=== PATIENT | female | born 1985 | race Caucasian/White ===

== ENCOUNTER → 2017-06-21 | Outpatient (CLI) | payer OTHER | LOC: BICRAD 15:23 | PROVIDERS: ATTEND Physician Assistant | DX: J45.901 Unspecified asthma with (acute) exacerbation (principal) | CPT/HCPCS: 71046 ==

== ENCOUNTER 2017-07-04 23:57 | Emergency (ER) | payer BC, OTHER, SELFPAY ==
[2017-07-05 01:07] LABS: #Basophils 0.1 thou/uL (0.0-0.2); #Eosinphils 0.1 thou/uL (0.0-0.7); #Monocytes 0.5 thou/uL (0.11-0.59); #Neutrophils 4.3 thou/uL (1.40-6.50); %Eosinophils 1.6 % (0.0-10.0); %Lymphocytes 37.8 % (21.0-51.0); %Monocytes 5.8 % (0.0-10.0); %Neutrophils 53.8 % (42.0-75.0); Hemoglobin 14.2 g/dL (12.0-16.0); Mean Corpuscular HGB CONC 33.1 g/dL (32.0-36.0); Mean Corpuscular Volume 96.7 fl (81.0-99.0); Mean Platelet Volume 7.2 fL (7.4-10.4); Platelet Count 226 thou/uL (130-400); RBC Distribution Width 11.7 % (11.5-14.5); Red Blood Cell (RBC) Count 4.43 mill/uL (4.20-5.40); White Blood Cell (WBC) Count 7.9 thou/uL (4.8-10.8)
[2017-07-05 01:34] LABS: ALT (SGPT) 15 U/L (8-55); AST (SGOT) 10 U/L (5-34); Albumin 4.1 g/dL (3.5-5.0); Alkaline Phosphatase 88 U/L (40-150); Anion Gap 13 mmol/L (10-20); BUN (Urea Nitrogen) 7 mg/dL (7.0-18.7); Bilirubin, Total 0.4 mg/dL (0.2-1.2); Calc. Creatinine Clearance 0 mL/min (70-130); Calcium 9.1 mg/dL (7.8-10.44); Carbon Dioxide 26 mmol/L (22-29); Chloride 103 mmol/L (98-107); Estimated GFR-MDRD 88; Globulin 2.7 g/dL (2.4-3.5); Glucose 86 mg/dL (70-105); Potassium 3.8 mmol/L (3.5-5.1); Protein, Total 6.8 g/dL (6.0-8.3); Sodium 138 mmol/L (136-145)
[2017-07-05] MEDS ORDERED: Ondansetron HCl/PF 4 MG/2 ML Vial ONE (02:15)
[2017-07-05 03:18] LABS: Bilirubin Small (Negative); Blood, Urine Negative (Negative); Clarity CLEAR (Clear); Glucose, Urine (Dipstick) Negative (Negative); Leukocyte Negative (Negative); Nitrite Negative (Negative); Pregnancy Test - Urine (BHCG) Negative (Negative); Pregu Control Background? CLEAR/WHITE (CLR/WHITE); Pregu Control Bar Appear? YES (CONTROL BAR); Protein, Urine (Dipstick) Negative (Neg-Trace); Specific Gravity, Urine 1.024 (1.002-1.036)
[2017-07-05 03:19] LABS: Specific Gravity 1.024 (1.002-1.036)
--- NOTE | 2017-07-05 09:23 | ULT ---
PRELIMINARY REPORT/[facility]/EMERGENCY AFTER HOURS PROCEDURE: EXAM: US Abdomen Limited, Right Upper Quadrant EXAM DATE/TIME: 07/05/2017 2:38 AM CLINICAL HISTORY: Pain and signs and symptoms; Nausea and vomiting; Abdominal pain; Other: Ruq radiating to rt flank; Prior surgery; Surgery date: 6+ months; Surgery type: Gastric sleeve 10 yr s ago TECHNIQUE: Real-time ultrasound of the right upper quadrant with image documentation. COMPARISON: No relevant prior studies available. FINDINGS: Liver: The liver is mildly enlarged. No intrahepatic bile duct dilation. Gallbladder: Unremarkable. No gallstones, gallbladder wall thickening or pericholecystic fluid. electronic technologist noted a sonographic negative Chavez's sign. Common bile duct: Unremarkable as visualized. No stones. No dilation. Pancreas: The pancreas is poorly-visualized due to overlying bowel gas. Visualized portions of the he ad and body are unremarkable. Right kidney: 10 mm echogenic focus at the mid pole collecting system of the right kidney suggestive of a calculus. No hydronephrosis. IMPRESSION: 1. No sonographic evidence of cholelithiasis or acute cholecystitis. 2. Nonobstructive right renal calculus. ---We are pleased to participate in the care of your patient.--- Thank you for allowing us to participate in the care of your patient. Dictated and Authenticated by: Obdulia Marley MD 07/05/2017 3:20 AM Central Time ([place] & [place]) RIGHT UPPER QUADRANT ULTRASOUND: FINAL REPORT Date: 07-05-17 Comparison: None. History: Right upper quadrant pain, nausea and vomiting. FINDINGS: I agree with the preliminary [facility] report dictated by Dr. Marley. The imaged pancreas is grossly unremar kable. The tail is obscured by bowel gas. No discrete focal liver lesion or intrahepatic biliary dila tation is seen. No gallbladder wall thickening or pericholecystic fluid. No gallstones are noted. CBD measures 4 mm, within normal limits. Right kidney measures approximately 9.7 cm in craniocaudal dimension. There is a probable intrarenal calculus in the lower pole region measuring up to 5-6 mm. IMPRESSION: Probable nonobstructing right renal calculus. No evidence for cholelithiasis, cholecystitis or biliar y dilatation. Code QA POS: [facility]
== END 2017-07-05 04:08 | disposition home or self-care (01) ==
LOC: ERS 23:57
DX: K29.70 Gastritis, unspecified, without bleeding (principal); F41.9 Anxiety disorder, unspecified; F31.9 Bipolar disorder, unspecified; D69.6 Thrombocytopenia, unspecified; Z79.82 Long term (current) use of aspirin; Z79.899 Other long term (current) drug therapy; Z86.718 Personal history of other venous thrombosis and embolism
CPT/HCPCS: 36415; 76705; 80053; 81003; 81025; 83690; 85025; 96374; J2405

== ENCOUNTER 2017-08-23 12:55 | Outpatient (CLI) | payer OTHER ==
--- NOTE | 2017-08-23 13:17 | RAD ---
TWO VIEWS CHEST: Date: 08-23-17 Provided Clinical History: Dyspnea. FINDINGS: Comparison 06-05-09. Cardiac and mediastinal silhouette is within normal limits. Lungs appear clear. There is no pleural f luid or pneumothorax apparent. IMPRESSION: No evidence for an acute cardiopulmonary process. POS: [facility]
== END 2017-08-23 12:56 | disposition home or self-care (01) ==
LOC: RAD 12:55
PROVIDERS: ATTEND Internal Medicine Critical Care Medicine
DX: R06.00 Dyspnea, unspecified (principal)
CPT/HCPCS: 71046

== ENCOUNTER 2017-08-29 17:30 | Outpatient (CLI) | payer OTHER | END 2017-08-29 17:31 | disposition home or self-care (01) | LOC: SLEEPLAB 17:30 | PROVIDERS: ATTEND Internal Medicine | DX: G47.33 Obstructive sleep apnea (adult) (pediatric) (principal); E66.9 Obesity, unspecified | CPT/HCPCS: 95806 ==

== ENCOUNTER 2017-10-16 16:44 | Emergency (ER) | payer OTHER ==
[2017-10-16] MEDS ORDERED: Ondansetron ODT 8 MG TAB ONE (17:11)
[2017-10-16 17:33] LABS: #Eosinphils 0.1 thou/uL (0.0-0.7); #Lymphocytes 0.6 thou/uL (1.20-3.40); #Monocytes 0.4 thou/uL (0.11-0.59); #Neutrophils 9.5 thou/uL (1.40-6.50); %Basophils 0.4 % (0.0-1.0); %Eosinophils 1.2 % (0.0-10.0); %Lymphocytes 5.5 % (21.0-51.0); %Monocytes 3.9 % (0.0-10.0); Hemoglobin 14.9 g/dL (12.0-16.0); Mean Corpuscular Hemoglobin 32.1 pg (27.0-31.0); Mean Corpuscular Volume 94.4 fl (81.0-99.0); Mean Platelet Volume 6.9 fL (7.4-10.4); Platelet Count 226 thou/uL (130-400); RBC Distribution Width 11.2 % (11.5-14.5); Red Blood Cell (RBC) Count 4.65 mill/uL (4.20-5.40); White Blood Cell (WBC) Count 10.7 thou/uL (4.8-10.8)
[2017-10-16 17:40] LABS: BHCG - Serum Negative (NEGATIVE); Pregs Control Background? CLEAR/WHITE (CLR/WHITE); Pregs Control Bar Appear? YES (CONTROL BAR)
[2017-10-16 17:59] LABS: ALT (SGPT) 22 U/L (8-55); AST (SGOT) 21 U/L (5-34); Albumin 4.3 g/dL (3.5-5.0); Alkaline Phosphatase 95 U/L (40-150); Anion Gap 17 mmol/L (10-20); BUN (Urea Nitrogen) 7 mg/dL (7.0-18.7); Bilirubin, Total 0.5 mg/dL (0.2-1.2); CK (CPK) 44 U/L (29-168); Calc. Creatinine Clearance 0 mL/min (70-130); Calcium 9.5 mg/dL (7.8-10.44); Carbon Dioxide 20 mmol/L (22-29); Chloride 106 mmol/L (98-107); Estimated GFR-MDRD 89; Globulin 3.1 g/dL (2.4-3.5); Glucose 119 mg/dL (70-105); Lipase 9 U/L (8-78); Magnesium 1.9 mg/dL (1.6-2.6); Potassium 3.9 mmol/L (3.5-5.1); Protein, Total 7.4 g/dL (6.0-8.3); Sodium 139 mmol/L (136-145)
[2017-10-16] MEDS ORDERED: Ketorolac Tromethamine 30 MG/ML VIAL ONE (18:24)
[2017-10-16] MEDS ORDERED: Promethazine HCl 25 MG/ML VIAL ONE (18:24)
[2017-10-16 19:18] LABS: Bilirubin Small (Negative); Blood, Urine Negative (Negative); Clarity CLOUDY (Clear); Glucose, Urine (Dipstick) Negative (Negative); Leukocyte Negative (Negative); Nitrite Negative (Negative); Protein, Urine (Dipstick) Negative (Neg-Trace); Specific Gravity, Urine 1.026 (1.002-1.036); Urobilinogen 0.2 mg/dL (0.2-1.0)
--- NOTE | 2017-10-16 21:30 | ULT ---
RIGHT UPPER QUADRANT ULTRASOUND: History: Right flank pain, nausea, vomiting, and diarrhea. FINDINGS: The liver demonstrates increased echogenicity consistent with fatty infiltration. No focal mass or in trahepatic ductal dilatation is seen. No gallstones, gallbladder wall thickening or pericholecystic f luid is seen. The common duct measures 5 mm in diameter. The pancreas is not well visualized due to o verlying bowel gas. The right kidney is unremarkable without definite mass or hydronephrosis. IMPRESSION: 1. Fatty liver. 2. No evidence of cholelithiasis. POS: [facility]
== END 2017-10-16 20:09 | disposition home or self-care (01) ==
LOC: ERS 16:44
DX: K52.9 Noninfective gastroenteritis and colitis, unspecified (principal); Z86.718 Personal history of other venous thrombosis and embolism; E66.9 Obesity, unspecified; F41.9 Anxiety disorder, unspecified; F31.9 Bipolar disorder, unspecified; Z79.899 Other long term (current) drug therapy; Z79.82 Long term (current) use of aspirin
CPT/HCPCS: 76705; 80053; 81003; 82550; 83605; 83690; 83735; 84703; 85025; 87045; 87046; 87086; 87449; 87899; 96361; 96374; J1885; J2550

== ENCOUNTER 2017-12-15 07:23 | Outpatient (CLI) | payer OTHER | END 2017-12-15 07:24 | disposition home or self-care (01) | LOC: BICMRI 07:23 | PROVIDERS: ATTEND Family Medicine | DX: T14.8XXA Other injury of unspecified body region, initial encounter (principal); R22.31 Localized swelling, mass and lump, right upper limb; M25.531 Pain in right wrist; M85.88 Other specified disorders of bone density and structure, other site ==

== ENCOUNTER 2018-01-26 11:42 | Emergency (ER) | payer OTHER ==
[2018-01-26] MEDS ORDERED: Meclizine HCl 25 MG TAB ONE (12:28)
[2018-01-26 12:30] LABS: BHCG - Serum Negative (NEGATIVE); Pregs Control Background? CLEAR/WHITE (CLR/WHITE); Pregs Control Bar Appear? YES (CONTROL BAR)
[2018-01-26] MEDS ORDERED: Ondansetron HCl/PF 4 MG/2 ML Vial ONE (12:30)
[2018-01-26] MEDS ORDERED: Ondansetron ODT 4 MG TAB ONE (12:32)
[2018-01-26 12:39] LABS: ALT (SGPT) 14 U/L (8-55); AST (SGOT) 14 U/L (5-34); Albumin 3.8 g/dL (3.5-5.0); Alkaline Phosphatase 90 U/L (40-150); Anion Gap 11 mmol/L (10-20); BUN (Urea Nitrogen) 8 mg/dL (7.0-18.7); Bilirubin, Total 0.3 mg/dL (0.2-1.2); CK (CPK) 203 U/L (29-168); Calc. Creatinine Clearance 0 mL/min (70-130); Calcium 9.1 mg/dL (7.8-10.44); Carbon Dioxide 26 mmol/L (22-29); Chloride 107 mmol/L (98-107); Estimated GFR-MDRD 85; Globulin 2.6 g/dL (2.4-3.5); Glucose 126 mg/dL (70-105); Potassium 3.4 mmol/L (3.5-5.1); Protein, Total 6.4 g/dL (6.0-8.3); Sodium 141 mmol/L (136-145)
[2018-01-26 13:46] LABS: #Eosinphils 0.1 thou/uL (0.0-0.7); #Lymphocytes 1.5 thou/uL (1.20-3.40); #Monocytes 0.3 thou/uL (0.11-0.59); #Neutrophils 4.1 thou/uL (1.40-6.50); %Basophils 0.6 % (0.0-1.0); %Lymphocytes 24.9 % (21.0-51.0); %Monocytes 4.8 % (0.0-10.0); %Neutrophils 68.6 % (42.0-75.0); Hemoglobin 12.6 g/dL (12.0-16.0); Mean Corpuscular HGB CONC 34.3 g/dL (32.0-36.0); Mean Corpuscular Hemoglobin 31.9 pg (27.0-31.0); Mean Platelet Volume 7.4 fL (7.4-10.4); Platelet Count 213 thou/uL (130-400); RBC Distribution Width 11.4 % (11.5-14.5); Red Blood Cell (RBC) Count 3.95 mill/uL (4.20-5.40); White Blood Cell (WBC) Count 5.9 thou/uL (4.8-10.8)
== END 2018-01-26 15:05 | disposition home or self-care (01) ==
LOC: ERS 11:42
DX: R55 Syncope and collapse (principal); D69.6 Thrombocytopenia, unspecified; F31.9 Bipolar disorder, unspecified; F41.9 Anxiety disorder, unspecified; E66.9 Obesity, unspecified; Z79.899 Other long term (current) drug therapy
CPT/HCPCS: 36415; 80053; 82550; 84703; 85025; 93005; 96360; J2405; Q0162

== ENCOUNTER 2018-01-27 14:48 | Emergency (ER) | payer OTHER ==
[2018-01-27 16:25] LABS: CKMB 1.5 ng/mL (0-6.6); Troponin I Less than 0.010 ng/mL (< 0.028)
[2018-01-27 16:39] LABS: Bilirubin Negative (Negative); Blood, Urine Negative (Negative); Clarity CLEAR (Clear); Glucose, Urine (Dipstick) Negative (Negative); Leukocyte Small (Negative); Nitrite Negative (Negative); Protein, Urine (Dipstick) Negative (Neg-Trace)
[2018-01-27 16:49] LABS: Amphetamine Not Detected (NotDetected); Barbiturates Screen Not Detected (NotDetected); Benzodiazepine Screen Not Detected (NotDetected); Cocaine Metabolite Screen Not Detected (NotDetected); Medtox Control Line Valid? VALID (VALID); Medtox Reader # READER 1; Methadone Not Detected (NotDetected); Methamphetamine Not Detected (NotDetected); Opiate Screen Not Detected (NotDetected); Oxycodone Screen Not Detected (NotDetected); Phencyclidine (PCP) Not Detected (NotDetected); THC/Cannabinoid Screen Not Detected (NotDetected); Tricyclic Screen Not Detected (NotDetected)
[2018-01-27 16:52] LABS: Bacteria/HPF Rare-Few HPF (None Seen); Hyaline Casts/LPF 0-3 HYALINE CAST LPF (0-3 Hyaline); Pathc Cast-AUWi Flag 0.29 (0-2.49); RBC/HPF 0-3 HPF (0-3)
--- NOTE | 2018-01-27 17:04 | CT ---
CT HEAD WITHOUT CONTRAST: 01/27/18 COMPARISON: 11/30/05. HISTORY: Syncope. TECHNIQUE: Serial axial CT imaging at 5 mm intervals from vertex through skull base without contrast. FINDINGS: The imaged paranasal sinuses/mastoid air cells are well aerated. No displaced calvarial fracture. No intracranial hemorrhage, midline shift, or mass effect or ventricular enlargement. IMPRESSION: No acute findings. POS: [facility]
[2018-01-27] MEDS ORDERED: hydrOXYzine 25 MG TAB ONE ×2 (17:32)
[2018-01-27] MEDS ORDERED: Meclizine HCl 25 MG TAB ONE (17:37)
[2018-01-27] MEDS ORDERED: cefTRIAXone\\ROCEPHIN 1 GM VIAL ONE (18:03)
== END 2018-01-27 20:20 | disposition home or self-care (01) ==
LOC: ERS 14:48
DX: N39.0 Urinary tract infection, site not specified (principal); R56.9 Unspecified convulsions; E66.9 Obesity, unspecified; Z86.73 Personal history of transient ischemic attack (TIA), and cerebral infarction without residual deficits; Z79.899 Other long term (current) drug therapy
CPT/HCPCS: 36415; 36416; 70450; 80306; 81003; 81015; 82553; 84484; 85379; 93005; 96361; 96365; J0696

== ENCOUNTER 2018-02-02 15:50 | Inpatient (IN) | payer OTHER ==
[2018-02-02 16:52] LABS: #Eosinphils 0.1 thou/uL (0.0-0.7); #Lymphocytes 2.4 thou/uL (1.20-3.40); #Monocytes 0.4 thou/uL (0.11-0.59); #Neutrophils 4.5 thou/uL (1.40-6.50); %Basophils 0.1 % (0.0-1.0); %Eosinophils 1.3 % (0.0-10.0); %Lymphocytes 32.4 % (21.0-51.0); %Monocytes 5.6 % (0.0-10.0); %Neutrophils 60.5 % (42.0-75.0); Hemoglobin 13.7 g/dL (12.0-16.0); Mean Corpuscular Hemoglobin 32.1 pg (27.0-31.0); Mean Corpuscular Volume 91.9 fL (78.0-98.0); Mean Platelet Volume 7.1 fL (7.4-10.4); Platelet Count 257 thou/uL (130-400); RBC Distribution Width 11.4 % (11.5-14.5); Red Blood Cell (RBC) Count 4.25 mill/uL (4.20-5.40); White Blood Cell (WBC) Count 7.4 thou/uL (4.8-10.8)
[2018-02-02 16:55] LABS: BHCG - Serum Negative (NEGATIVE); Pregs Control Background? CLEAR/WHITE (CLR/WHITE); Pregs Control Bar Appear? YES (CONTROL BAR)
[2018-02-02 17:01] LABS: ALT (SGPT) 14 U/L (8-55); AST (SGOT) 14 U/L (5-34); Albumin 4.3 g/dL (3.5-5.0); Alkaline Phosphatase 101 U/L (40-150); Anion Gap 12 mmol/L (10-20); BUN (Urea Nitrogen) 9 mg/dL (7.0-18.7); Bilirubin, Total 0.3 mg/dL (0.2-1.2); CK (CPK) 50 U/L (29-168); Calc. Creatinine Clearance 0 mL/min (70-130); Carbon Dioxide 24 mmol/L (22-29); Chloride 105 mmol/L (98-107); Estimated GFR-MDRD Greater than 90; Globulin 2.5 g/dL (2.4-3.5); Glucose 91 mg/dL (70-105); Potassium 4.1 mmol/L (3.5-5.1); Protein, Total 6.8 g/dL (6.0-8.3); Sodium 137 mmol/L (136-145)
[2018-02-02 17:06] LABS: CKMB 0.7 ng/mL (0-6.6); Troponin I Less than 0.010 ng/mL (< 0.028)
[2018-02-02 17:07] LABS: Acetaminophen Less than 6.0 mcg/mL (10.0-30.0); Alcohol Less than 10 mg/dL (Less than 10); Salicylate Less than 8.0 mg/dL (15.0-30.0)
[2018-02-02] MEDS ORDERED: diphenhydrAMINE 50 MG/ML VIAL ONE (17:31)
[2018-02-02] MEDS ORDERED: Metoclopramide HCl 10 MG/2 ML VIAL ONE (17:32)
[2018-02-02 17:38] LABS: Bilirubin Negative (Negative); Blood, Urine Negative (Negative); Clarity CLEAR (Clear); Glucose, Urine (Dipstick) Negative (Negative); Leukocyte Negative (Negative); Nitrite Negative (Negative); Protein, Urine (Dipstick) Negative (Neg-Trace); Specific Gravity, Urine 1.007 (1.002-1.036); Urobilinogen 0.2 mg/dL (0.2-1.0)
[2018-02-02 17:53] LABS: Amphetamine Not Detected (NotDetected); Barbiturates Screen Not Detected (NotDetected); Benzodiazepine Screen Not Detected (NotDetected); Cocaine Metabolite Screen Not Detected (NotDetected); Medtox Control Line Valid? VALID (VALID); Medtox Reader # READER 4; Methadone Not Detected (NotDetected); Methamphetamine Not Detected (NotDetected); Opiate Screen Not Detected (NotDetected); Oxycodone Screen Not Detected (NotDetected); Phencyclidine (PCP) Not Detected (NotDetected); THC/Cannabinoid Screen Not Detected (NotDetected); Tricyclic Screen Not Detected (NotDetected)
--- NOTE | 2018-02-02 20:08 | PDOC.FPRHP ---
- History of Present Illness Chief Complaint: Syncopal-like episodes History of Present Illness: Ms. Porter presents with a one week history witnessed syncope with seizure like activity. She describes the episodes as starting out with a strange feeling in her head, then she does not remember anything until she wakes up on the floor. Witnesses describe the episodes as her staring into space with eye twitching, unresponsive to verbal commands, and occasionally falling to the ground. Afterwards she feels that she has been hit by a train. In 2015 she began having these episodes, which were worked up and resolved without a diagnoses. Until one week ago she has not had any witnessed episodes, but multiple falls and broken bones. From 7-5 days ago she had daily episodes witnessed by coworkers, who brought her to the ER. From 5 days ago until today she has not had any episodes but did have the feeling that she was going to have one today. five days ago she saw Dr. Wahl in the clinic and was diagnosed with complex migraines and given cyclobenzaprine. ED Course: CBC, CMP, UA, UDS. all neg. (head CT on 01/28, neg) - Allergies/Adverse Reactions Allergies Allergy/AdvReac Type Severity Reaction Status Date / Time shellfish derived Allergy Verified 02/02/18 22:13 Sulfa (Sulfonamide Allergy Verified 02/02/18 22:13 Antibiotics) - Home Medications Medication Instructions Recorded Confirmed Type Cholecalciferol (Vitamin D3) 10,000 units PO HS 02/02/18 02/02/18 History [Vitamin D3] DULoxetine [Cymbalta] 60 mg PO HS 02/02/18 02/02/18 History Folic Acid 0.4 mg PO HS 02/02/18 02/02/18 History Pantoprazole [Protonix] 40 mg PO HS 02/02/18 02/02/18 History clonazePAM [Clonazepam] 1 mg PO HS 02/02/18 02/02/18 History lamoTRIgine [Lamictal] 200 mg PO BID 02/02/18 02/02/18 History traZODone HCl [Trazodone HCl] 50 mg PO HS 02/02/18 02/02/18 History - History PMHx: PCOS, Bipolar II, DVT after gastric surgery PSHx: Gastric sleeve, tonsilectomy/adenoidectomy, mirena placed FHx:Dissociative identity disorder, CAD, BP Social: social ETOH - Review of Systems General: reports: other (cold intolerance) Eyes: reports: vision changes ENT: denies: nasal congestion, rhinorrhea Respiratory: denies: cough, congestion, shortness of breath Cardiovascular: denies: chest pain, palpitation, edema Gastrointestinal: reports: nausea. denies: vomiting, diarrhea, constipation Genitourinary: denies: incontinence, dysuria Skin: denies: rashes, lesions Musculoskeletal: denies: pain, tenderness Neurological: reports: syncope, seizure (witnessed siezure like activity). denies: numbness Psychological: reports: anxiety, depression - Vital signs BP: [127/89] HR: [115] RR: [20] Tmax: [97.8] Pox: [97]% on [RA] Wt: [136kg] - Physical Exam Constitutional: NAD HEENT: normocephalic and atraumatic, EOMI (horizontal nystagmus), conjunctiva clear, grossly normal vision, grossly normal hearing Neck: supple, trachea midline, no LAD Chest: no-tender to palpation, no lesions Heart: RRR, normal S1/S2, no murmurs/rubs/gallops Lungs: CTAB, no respiratory distress, good air movement Abdomen: soft, non-tender, bowel sounds present, no masses/distention Musculoskeletal: normal structure, normal tone Neurological: no focal deficit, CN II-XII intact Skin: no rash/lesions Heme/Lymphatic: no unusual bruising or bleeding Psychiatric: normal mood and affect, good judgment and insight, intact recent and remote memory FMR H&P: Results - Labs Result Diagrams: 02/02/18 16:30 02/02/18 16:30 Lab results: WBC 7.4 thou/uL (4.8-10.8) 02/02/18 16:30 Hgb 13.7 g/dL (12.0-16.0) 02/02/18 16:30 Hct 39.1 % (36.0-47.0) 02/02/18 16:30 MCV 91.9 fL (78.0-98.0) 02/02/18 16:30 Plt Count 257 thou/uL (130-400) 02/02/18 16:30 Neutrophils % 60.5 % (42.0-75.0) 02/02/18 16:30 Sodium 137 mmol/L (136-145) 02/02/18 16:30 Potassium 4.1 mmol/L (3.5-5.1) 02/02/18 16:30 Chloride 105 mmol/L (98-107) 02/02/18 16:30 Carbon Dioxide 24 mmol/L (22-29) 02/02/18 16:30 BUN 9 mg/dL (7.0-18.7) 02/02/18 16:30 Creatinine 0.73 mg/dL (0.6-1.1) 02/02/18 16:30 Glucose 91 mg/dL (70-105) 02/02/18 16:30 Calcium 9.0 mg/dL (7.8-10.44) 02/02/18 16:30 Total Bilirubin 0.3 mg/dL (0.2-1.2) 02/02/18 16:30 AST 14 U/L (5-34) 02/02/18 16:30 ALT 14 U/L (8-55) 02/02/18 16:30 Alkaline Phosphatase 101 U/L (40-150) 02/02/18 16:30 Creatine Kinase 50 U/L (29-168) 02/02/18 16:30 CK-MB (CK-2) 0.7 ng/mL (0-6.6) 02/02/18 16:30 Serum Total Protein 6.8 g/dL (6.0-8.3) 02/02/18 16:30 Albumin 4.3 g/dL (3.5-5.0) 02/02/18 16:30 Urine Ketones Negative mg/dL (Negative) 02/02/18 17:15 Urine Blood Negative (Negative) 02/02/18 17:15 Urine Nitrite Negative (Negative) 02/02/18 17:15 Ur Leukocyte Esterase Negative (Negative) 02/02/18 17:15 FMR H&P: A/P - Problem List (1) Seizure-like activity Current Visit: Yes Status: Acute Code(s): R56.9 - UNSPECIFIED CONVULSIONS (2) Bipolar 2 disorder Current Visit: Yes Status: Acute Code(s): F31.81 - BIPOLAR II DISORDER (3) Neck pain Current Visit: Yes Status: Acute Code(s): M54.2 - CERVICALGIA - Plan 1. Seizure-like activity - seizure vs. pseudo seizure vs complex migraine vs structural heart defect - EKG x2 without concern, order Echo - consult neurology, consider EEG - continue home meds for migraines 2. Neck pain - possible contributing factor - continue muscle relaxer 3. Bipolar type 2 - positive hx of psychiatric disorders - consider pseudo-seizure as addition 4. Obesity - s/p gastric sleeve - CMP wnl, consider other metabolic abnormalities - consistent carb diet Disposition/LOS: monitor on stroke, consult neurology in AM and await recs, possible outpatient work up FMR H&P: Upper Level - Pertinent history 32 yo female here for near syncopal episode. Hx of bipolar II, anxiety. Today she was feeling light headed and "heavy head" while at work, so she came to the hospital. No syncope. She had a similar episode 01/26/18 where she lost consciousness at work after feeling light headed. Witnessed by coworkers, endorsed shaking, but not sure what it looked like or how long it lasted. Endorses post-ictal aura of "feeling like I was run over by a bus." Brought to the ER with neg EKG. The next day she had similar feeling so she came to the ER where she had syncopal episode. CT head negative. UA showed UTI so she was given Bactrim. Recommended she see neurology, appt set up for early March. On 01/30 she was seen by Dr. Wahl at our clinic where she was given cyclobenzaprine for suspected complex seizures. - Pertinent findings Gen: NAD, AAO x 3 Eyes: EOMI, pupils equally dilated Card: RRR, possible bowel sounds in thorax Pulm: CTAB Abd: NBS x 4, NT,ND Ext: no cyanosis or edema Neuro: left eyelid twitch when turning head to the right with dolls eye exam; pt reported dizziness when testing extraoccular muscles; no nystagmus vertical or horizontal - Plan Date/Time: 02/02/182004 Saud Harris DO, have evaluated this patient and agree with findings/plan as outlined by international relations teacher resident. Pertinent changes/additions are listed here. 32 yo female here for syncopal episodes undetermined etiology. -migraine complex migraine is leading suspicion. DDx includes seizure, pseudoseizure, vasovagal, orthostatic, stroke, TIA. postictal state is indicative of seizure and patient had witnessed full body shaking. discuss with neurology in the morning. consider EEG -Bipolar II -GERD -Obesity Attending Addendum - Attending Addendum Date/Time: 02/03/18 0708 I personally evaluated the patient and discussed the management with Dr. Lui and Allie. I agree with and repeated History, Examination, Assessment and Plan documented above with any addition or exceptions noted below. Pt asymptomatic at this time. Exam unremarkable. Will consult neuro for eval of possible new seizures. Consider TTE in AM for syncope, although she tells me she had a normal workup in 2016 with cardiology, including a holter. Recent negative d-dimer, and low suspicion for PE at this time.
[2018-02-02] MEDS ORDERED: Ondansetron HCl/PF 4 MG/2 ML Vial IVP PRN (20:28)
[2018-02-02] MEDS ORDERED: Ondansetron ODT 4 MG TAB SL PRN (20:28)
[2018-02-02] MEDS ORDERED: Acetaminophen 325 MG TAB PO PRN (20:28)
[2018-02-02 21:01] VITALS: BMI 46.2
[2018-02-02] MEDS ORDERED: lamoTRIgine 100 MG TAB PO SCH (23:45)
[2018-02-02] MEDS ORDERED: DULoxetine 60 MG CAP PO SCH (23:45)
[2018-02-02] MEDS ORDERED: Enoxaparin Sodium 40 MG/0.4 ML SYRINGE SC SCH (23:59)
[2018-02-03 07:08] LABS: #Basophils 0.1 thou/uL (0.0-0.2); #Eosinphils 0.1 thou/uL (0.0-0.7); #Lymphocytes 2.2 thou/uL (1.20-3.40); #Monocytes 0.4 thou/uL (0.11-0.59); #Neutrophils 2.9 thou/uL (1.40-6.50); %Eosinophils 1.4 % (0.0-10.0); %Lymphocytes 39.5 % (21.0-51.0); %Monocytes 6.6 % (0.0-10.0); %Neutrophils 51.5 % (42.0-75.0); Hemoglobin 12.4 g/dL (12.0-16.0); Mean Corpuscular Volume 93.9 fL (78.0-98.0); Mean Platelet Volume 7.4 fL (7.4-10.4); Platelet Count 207 thou/uL (130-400); RBC Distribution Width 11.5 % (11.5-14.5); White Blood Cell (WBC) Count 5.6 thou/uL (4.8-10.8)
[2018-02-03 07:34] LABS: ALT (SGPT) 16 U/L (8-55); AST (SGOT) 12 U/L (5-34); Albumin 3.8 g/dL (3.5-5.0); Alkaline Phosphatase 86 U/L (40-150); Anion Gap 13 mmol/L (10-20); BUN (Urea Nitrogen) 7 mg/dL (7.0-18.7); Bilirubin, Total 0.5 mg/dL (0.2-1.2); Calc. Creatinine Clearance 267 mL/min (70-130); Calcium 9.2 mg/dL (7.8-10.44); Carbon Dioxide 25 mmol/L (22-29); Chloride 105 mmol/L (98-107); Estimated GFR-MDRD Greater than 90; Globulin 2.5 g/dL (2.4-3.5); Glucose 84 mg/dL (70-105); Potassium 3.4 mmol/L (3.5-5.1); Protein, Total 6.3 g/dL (6.0-8.3); Sodium 140 mmol/L (136-145)
--- NOTE | 2018-02-03 08:25 | PDOC.FM ---
- Subjective Subjective: Patient was not in room, at echo at time I went to see her. However, per nurse and mom patient had no seizure-like activity overnight. Reported possible twitching but unsure. No acute events otherwise. After returning patient is doing well. Had an episode of focal seizure with her right arm. Was given ativan with resolution of right arm shaking. - Objective MAR Reviewed: Yes Vital Signs & Weight: Vital Signs (12 hours) Temp Pulse Resp BP BP BP BP 02/03/18 07:52 97.8 F 74 16 133/63 02/03/18 04:39 80 109/65 02/03/18 04:38 68 104/56 L 02/03/18 04:37 68 93/55 L 02/03/18 03:55 97.4 F L 67 16 99/55 L 02/03/18 01:53 98.4 F 75 16 98/53 L 02/02/18 23:34 98.6 F 78 18 02/02/18 20:50 98.6 F 78 18 110/65 Pulse Ox 02/03/18 07:52 98 02/03/18 04:39 02/03/18 04:38 02/03/18 04:37 02/03/18 03:55 100 02/03/18 01:53 97 02/02/18 23:34 100 02/02/18 20:50 100 Weight Weight 146.057 kg I&O: 02/02/18 02/03/18 02/04/18 06:59 06:59 06:59 Intake Total 240 Balance 240 Result Diagrams: 02/03/18 05:19 02/03/18 05:19 <Lillian Acosta - Last Filed: 02/03/18 10:42> - Objective Vital Signs & Weight: Vital Signs (12 hours) Temp Pulse Resp BP BP BP BP 02/03/18 13:15 122/60 98/56 L 113/59 L 02/03/18 12:22 98.5 F 114 H 18 109/71 02/03/18 07:52 97.8 F 74 16 133/63 02/03/18 07:45 97.8 F 74 16 02/03/18 04:39 80 109/65 02/03/18 04:38 68 104/56 L 02/03/18 04:37 68 93/55 L 02/03/18 03:55 97.4 F L 67 16 99/55 L Pulse Ox 02/03/18 13:15 02/03/18 12:22 96 02/03/18 07:52 98 02/03/18 07:45 02/03/18 04:39 02/03/18 04:38 02/03/18 04:37 02/03/18 03:55 100 Weight Admit Weight 146.057 kg Weight 146.057 kg I&O: 02/02/18 02/03/18 02/04/18 06:59 06:59 06:59 Intake Total 240 Balance 240 Result Diagrams: 02/03/18 05:19 02/03/18 05:19 <Genia Correa - Last Filed: 02/03/18 15:45> Phys Exam - Physical Examination Unable to assess since pt. was not in room will reassess after she returns. HEENT: moist MMs, TM's clear Neck: full ROM Respiratory: clear to auscultation bilateral Cardiovascular: RRR, no significant murmur Gastrointestinal: soft, non-tender Musculoskeletal: no edema Neurological: moves all 4 limbs Psychiatric: normal affect, A&O x 3 Skin: no rash <Lillian Acosta - Last Filed: 02/03/18 10:42> Dx/Plan (1) Hypokalemia Code(s): E87.6 - HYPOKALEMIA Status: Acute (2) H/O deep venous thrombosis Code(s): Z86.718 - PERSONAL HISTORY OF OTHER VENOUS THROMBOSIS AND EMBOLISM Status: Acute (3) Bipolar 2 disorder Code(s): F31.81 - BIPOLAR II DISORDER Status: Acute (4) Neck pain Code(s): M54.2 - CERVICALGIA Status: Acute (5) Seizure-like activity Code(s): R56.9 - UNSPECIFIED CONVULSIONS Status: Acute - Plan Plan: 32 yo F with seizure like activity 1. Seizure like activity -hx most consistent with suspected seizures: aura, post ictal state, localized convulsions, loss of urine -consulted neuro, appreciate recs -echo -order EEG ddx: cardiogenic anatomical abnormality 2. hypokalemia -replaced K+ 3. BP2 -continue home meds 4. h/o DVT -lovenox ppx 5. PCOS -aware, no meds at this time dvt ppx: lovenox discussed with dr. correa <Lillian Acosta - Last Filed: 02/03/18 10:42> Attending Addendum - Attending Addendum Date/Time: 02/03/18 [id number] I personally evaluated the patient and discussed the management with Dr. Acosta. I agree with the History, Examination, Assessment and Plan documented above with any addition or exceptions noted below. The patient was admitted for seizure-like activity. This morning pt had shaking in her arm. Nursing witnessed the episode and noted pt was slow to respond. She was given ativan which ceased the activity. Neurology has been consulted. We will order EEG. Ativan prn for seizure. <Genia Correa - Last Filed: 02/03/18 15:45>
[2018-02-03] MEDS ORDERED: Potassium Chloride 20 MEQ TAB PO SCH (08:30)
[2018-02-03] MEDS ORDERED: Lorazepam 2 MG/ML VIAL ONE (09:09)
[2018-02-03] MEDS: lamoTRIgine 100 MG TAB PO SCH ×2 (10:05→20:51)
[2018-02-03] MEDS ORDERED: Ondansetron HCl/PF 4 MG/2 ML Vial IVP PRN (10:09)
[2018-02-03] MEDS ORDERED: Ondansetron HCl/PF 4 MG/2 ML Vial IVP SCH (10:15)
[2018-02-03] MEDS: Lorazepam 2 MG/ML VIAL SLOW IVP SCH ×2 (10:43→11:48)
[2018-02-03] MEDS ORDERED: Lorazepam 2 MG/ML VIAL SLOW IVP SCH (12:45)
[2018-02-03] MEDS ORDERED: Acetaminophen 325 MG TAB PO PRN (18:50)
[2018-02-03] MEDS ORDERED: Enoxaparin Sodium 40 MG/0.4 ML SYRINGE SC SCH (21:00)
[2018-02-03] MEDS ORDERED: DULoxetine 60 MG CAP PO SCH (21:00)
--- NOTE | 2018-02-04 05:36 | PDOC.FM ---
- Subjective Subjective: No overnight events. No questions or concerns. Denies Chest pain, shortness of breath. Voiding and stooling. - Objective MAR Reviewed: Yes Vital Signs & Weight: Vital Signs (12 hours) Temp Pulse Resp BP Pulse Ox 02/04/18 03:59 98.9 F 76 16 92/54 L 98 02/03/18 23:08 98.6 F 75 16 89/51 L 95 02/03/18 20:51 98.0 F 91 16 97 02/03/18 20:00 98.0 F 91 16 112/53 L 97 Weight Admit Weight 146.057 kg Weight 146.057 kg I&O: 02/02/18 02/03/18 02/04/18 06:59 06:59 06:59 Intake Total 1190 Balance 1190 Result Diagrams: 02/03/18 05:19 02/04/18 07:11 Phys Exam - Physical Examination Constitutional: NAD Respiratory: no wheezing, clear to auscultation bilateral Cardiovascular: RRR Gastrointestinal: soft, non-tender, positive bowel sounds Psychiatric: normal affect, A&O x 3 Dx/Plan (1) Seizure-like activity Code(s): R56.9 - UNSPECIFIED CONVULSIONS Status: Acute (2) Bipolar 2 disorder Code(s): F31.81 - BIPOLAR II DISORDER Status: Chronic (3) H/O deep venous thrombosis Code(s): Z86.718 - PERSONAL HISTORY OF OTHER VENOUS THROMBOSIS AND EMBOLISM Status: Resolved (4) Hypokalemia Code(s): E87.6 - HYPOKALEMIA Status: Acute - Plan Plan: Seizure like activity - Seizure vs conversion disorder - Hx of dx with complex migraine and pseudoseizure - CT brain nml last admission - Orthostatics nml - Awaiting neurology recs - Echo: 55-60% EF, r/o cardiogenic cause for syncope - EEG caught seizure-like activity, awaiting read - Ativan 1mg with seizure like activity Hypokalemia, resolved Bipolar Disorder - Continue home Lamictal, Cymbalta h/o DVT - Lovenox ppx PCOS - No acute concerns DVT ppx: lovenox
[2018-02-04 07:39] LABS: Anion Gap 15 mmol/L (10-20); BUN (Urea Nitrogen) 7 mg/dL (7.0-18.7); Calc. Creatinine Clearance 256 mL/min (70-130); Calcium 9.1 mg/dL (7.8-10.44); Carbon Dioxide 23 mmol/L (22-29); Chloride 104 mmol/L (98-107); Estimated GFR-MDRD Greater than 90; Glucose 86 mg/dL (70-105); Potassium 4.8 mmol/L (3.5-5.1); Sodium 137 mmol/L (136-145)
[2018-02-04] MEDS: lamoTRIgine 100 MG TAB PO SCH (08:30)
[2018-02-04 11:41] VITALS: BP 120/56; TEMP 98
--- NOTE | 2018-02-05 19:40 | ADD-PRG ---
DATE OF SERVICE: 02/04/2018 ADDENDUM: Please see the note from Dr. Ashby for which I concur. The patient is here for some typ e of event that sounds like probably pseudoseizures and apparently had an EEG last night. She states that she was actually having the event while the EEG was going on. We do not have the report nor th e progress note from the neurologist at this point in time, but per nursing staff, it sounds like bot h were normal. So, the exam is completely normal today. She is not doing anything in the room and i t sounds like this likely represents pseudoseizures and confirmed by neurologist, we will be ab le to send her out, probably just increase her clonazepam or maybe even consider will continue all her other home medications. She is on Lamictal, but certainly probably more from a mood stabiliz er standpoint for her bipolar type issues and we will continue that.
== END 2018-02-04 12:21 | disposition home or self-care (01) | DRG 101 ==
LOC: ERS 15:50 → 2SE 18:36
PROVIDERS: ADMIT Emergency Medicine; ATTEND Emergency Medicine
PROC: 4A00X4Z Measurement of Central Nervous Electrical Activity, External Approach (ICD-10-PCS; principal; 2018-02-03)
DX: R56.9 Unspecified convulsions (principal); F31.81 Bipolar II disorder; Z86.718 Personal history of other venous thrombosis and embolism; E87.6 Hypokalemia
CPT/HCPCS: 36415; 80048; 80053; 80306; 80307; 81003; 82550; 82553; 83735; 84146; 84443; 84484; 84703; 85025; 87086; 90471; 90732; 93005; 93306; 95816; 95819; 96374; 96375; G0009; J1200; J1650; J2060; J2405; J2765

== ENCOUNTER 2018-03-01 08:28 | Outpatient (CLI) | payer OTHER ==
[~2018-03-01 08:28] MED LIST: Gadobenate Dimeglumine 529 MG/1 ML (20ML VIAL) ONE
--- NOTE | 2018-03-01 10:35 | MRI ---
PRE AND POST CONTRAST ENHANCED MRI BRAIN: HISTORY: Seizures for six weeks. TECHNIQUE: Multiplanar, multisequence pre and post contrast enhanced MRI of the brain is obtained. FINDINGS: MR images demonstrate the brain to be unremarkable. No evidence of intracranial masses, hemorrhages, strokes, or contusions seen. No abnormal areas of intracranial enhancement seen. No definite evidence of temporal lobe abnormalities or masses seen. The images are less than optimal due to patient motion. IMPRESSION: Unremarkable pre and post contrast enhanced magnetic resonance imaging of the brain. POS: [facility]
== END 2018-03-01 08:29 | disposition home or self-care (01) ==
LOC: TBSIIMAG 08:28
PROVIDERS: ATTEND Family Medicine
DX: R56.9 Unspecified convulsions (principal); R41.3 Other amnesia; H02.402 Unspecified ptosis of left eyelid
CPT/HCPCS: 70553; A9579

== ENCOUNTER 2019-01-17 14:48 | Outpatient (CLI) | payer OTHER ==
--- NOTE | 2019-01-17 16:38 | ULT ---
ULTRASOUND DOPPLER DUPLEX VENOUS RIGHT UPPER EXTREMITY: 01/17/19 HISTORY: 33-year-old female with right upper extremity edema. TECHNIQUE: Christensen scale, color flow, and spectral analysis, of major veins of right upper extremity. Compression and release applied to all veins except the subclavian. FINDINGS: There is demonstration of blood flow, with no evidence of thrombosis, of the right internal jugular, subclavian, axillary, brachial, basilic, cephalic, radial and ulnar, veins. IMPRESSION: Negative. No deep venous thrombosis of right upper extremity. POS: [facility]
== END 2019-01-17 14:49 | disposition home or self-care (01) ==
LOC: ULT 14:48
PROVIDERS: ATTEND Student in an Organized Health Care Education/Training Program
DX: M79.601 Pain in right arm (principal); E72.11 Homocystinuria; Z86.718 Personal history of other venous thrombosis and embolism

== ENCOUNTER 2019-02-15 15:40 | Outpatient (CLI) | payer OTHER ==
--- NOTE | 2019-02-15 16:22 | ULT ---
Focused ultrasound of the left neck: 02/15/2019 COMPARISON: None HISTORY: Lymphadenopathy FINDINGS: Images of the left neck in an area of palpable concern demonstrate a lymph node measuring a pproximately 1.3 cm in short axis dimension, enlarged. Recommend further assessment via CT examination of the neck. IMPRESSION: Sonographic assessment in the area of palpable concern demonstrates an enlarged left cerv ical lymph node which should be further assessed via CT examination with IV contrast.
== END 2019-02-15 15:41 | disposition home or self-care (01) ==
LOC: ULT 15:40
PROVIDERS: ATTEND Student in an Organized Health Care Education/Training Program
DX: R59.0 Localized enlarged lymph nodes (principal)
CPT/HCPCS: 76999

== ENCOUNTER 2019-02-23 08:31 | Outpatient (CLI) | payer OTHER ==
[2019-02-23] MEDS ORDERED: Iopamidol 370 76% 100 ML VIAL ONE (10:26)
--- NOTE | 2019-02-23 10:46 | CT ---
CT neck soft tissues with contrast: DATE: 02/23/2019 HISTORY: 33-year-old female with cervical lymphadenopathy. Palpable lump. FINDINGS: There is an enlarged, approximately 1.3 x 0.9 x 1.6 cm lymph node level 5A lymph node. Margins are sm ooth. No cystic or necrotic changes. There are shotty scattered cervical lymph nodes at multiple other levels bilaterally, mostly on the o rder of 1 cm or less. Other than the left level 5A lymph node, there is no other significant abnormality identified involvi ng the posterior cervical, retropharyngeal, perivertebral, parapharyngeal, carotid, parotid, submandibular, tower observer, or pharyngeal mucosal, spaces. No definite abnormality of larynx. No thyro megaly. Some of the images of the larynx and thyroid are degraded by patient motion. No abscess. IMPRESSION: Enlarged left level 5A cervical lymph node, nonspecific.
== END 2019-02-23 08:32 | disposition home or self-care (01) ==
LOC: CT 08:31
PROVIDERS: ATTEND Student in an Organized Health Care Education/Training Program
DX: R59.1 Generalized enlarged lymph nodes (principal)
CPT/HCPCS: 70491; Q9967

== ENCOUNTER 2019-12-20 20:22 | Emergency (ER) | payer OTHER ==
--- NOTE | 2019-12-20 21:05 | RAD ---
XR Chest 1 View Portable History: Chest pain Comparison: None. Findings: Lungs are clear. No pneumothorax. No effusion. Cardiac silhouette and mediastinal contours are within normal limits. Impression: No acute intrathoracic abnormality.
[2019-12-20] MEDS ORDERED: Ondansetron PF 4 MG/2 ML Vial ONE (21:12)
[2019-12-20] MEDS ORDERED: Dexamethasone 10 MG/ML VIAL ONE (21:12)
[2019-12-20 21:17] LABS: #Basophils 0.1 thou/uL (0.0-0.2); #Eosinphils 0.2 thou/uL (0.0-0.7); #Lymphocytes 2.1 thou/uL (1.20-3.40); #Monocytes 0.5 thou/uL (0.11-0.59); #Neutrophils 3.2 thou/uL (1.40-6.50); %Basophils 0.9 % (0.0-1.0); %Eosinophils 2.5 % (0.0-10.0); %Lymphocytes 35.3 % (21.0-51.0); %Monocytes 8.6 % (0.0-10.0); %Neutrophils 52.7 % (42.0-75.0); Hemoglobin 13.9 g/dL (12.0-16.0); Mean Corpuscular HGB CONC 33.4 g/dL (32.0-36.0); Mean Corpuscular Hemoglobin 30.9 pg (27.0-31.0); Mean Corpuscular Volume 92.5 fL (78.0-98.0); Mean Platelet Volume 8.2 fL (7.4-10.4); Platelet Count 262 thou/uL (130-400); RBC Distribution Width 11.4 % (11.5-14.5); Red Blood Cell (RBC) Count 4.49 mill/uL (4.20-5.40); White Blood Cell (WBC) Count 6.1 thou/uL (4.8-10.8)
[2019-12-20 21:32] LABS: Pregnancy Test - Urine (BHCG) Negative (Negative); Pregu Control Background? CLEAR/WHITE (CLR/WHITE); Pregu Control Bar Appear? YES (CONTROL BAR); Specific Gravity 1.008 (1.002-1.036)
[2019-12-20 21:47] LABS: ALT (SGPT) 17 U/L (8-55); AST (SGOT) 15 U/L (5-34); Albumin 4.5 g/dL (3.5-5.0); Alkaline Phosphatase 109 U/L (40-110); Anion Gap 15 mmol/L (10-20); BUN (Urea Nitrogen) 13 mg/dL (7.0-18.7); Bilirubin, Total 0.3 mg/dL (0.2-1.2); Calc. Creatinine Clearance 0 mL/min (70-130); Calcium 9.3 mg/dL (7.8-10.44); Carbon Dioxide 23 mmol/L (22-29); Chloride 104 mmol/L (98-107); Estimated GFR-MDRD 83; Globulin 3.2 g/dL (2.4-3.5); Glucose 87 mg/dL (70-105); Potassium 3.7 mmol/L (3.5-5.1); Protein, Total 7.7 g/dL (6.0-8.3); Sodium 138 mmol/L (136-145)
[2019-12-21 14:51] LABS: SARS-CoV-2 MS2 Positive; SARS-CoV-2 N Gene Negative; SARS-CoV-2 S Gene Negative; SARS-CoV-2 orf1ab Negative
== END 2019-12-20 22:39 | disposition home or self-care (01) ==
LOC: ERS 20:22
DX: J45.901 Unspecified asthma with (acute) exacerbation (principal); Z20.828 Contact with and (suspected) exposure to other viral communicable diseases; F41.9 Anxiety disorder, unspecified; F31.9 Bipolar disorder, unspecified; Z79.899 Other long term (current) drug therapy
CPT/HCPCS: 71045; 80053; 81025; 85025; 87635; 94760; 96361; 96374; 96375; J1100; J2405; U0003

== ENCOUNTER 2021-02-26 17:51 | Emergency (ER) | payer OTHER, SELFPAY ==
[2021-02-26] MEDS ORDERED: Acetaminophen 500 MG TAB ONE (20:14)
== END 2021-02-26 20:16 | disposition home or self-care (01) ==
LOC: ERS 17:51
DX: M72.2 Plantar fascial fibromatosis (principal); E66.9 Obesity, unspecified; Z86.718 Personal history of other venous thrombosis and embolism

== ENCOUNTER 2024-05-03 12:46 | Emergency (ER) | payer OTHER ==
[2024-05-03 13:58] LABS: #Basophils 0.07 10x3/uL (0.0-0.2); %Basophils 0.9 % (0.0-1.0); %Eosinophils 1.1 % (0.0-10.0); %Lymphocytes 36.2 % (21.0-51.0); %Neutrophils 54.6 % (42.0-75.0); Hemoglobin 12.5 g/dL (12.0-16.0); Mean Corpuscular HGB CONC 32.9 g/dL (32.0-36.0); Mean Corpuscular Hemoglobin 30.5 pg (27.0-31.0); Mean Corpuscular Volume 92.7 fL (78.0-98.0); Mean Platelet Volume 9.8 fL (7.4-10.4); Platelet Count 267 10x3/uL (130-400); RBC Distribution Width 12.3 % (11.5-14.5)
[2024-05-03 14:12] LABS: BHCG - Serum Negative (NEGATIVE); Pregs Control Background? CLEAR/WHITE (CLR/WHITE); Pregs Control Bar Appear? YES (CONTROL BAR)
[2024-05-03] MEDS ORDERED: Milk Of Magnesia 30 ML UDCUP ONE (14:13)
[2024-05-03] MEDS ORDERED: Ondansetron ODT 4 MG TAB ONE ×2 (14:13→14:40)
[2024-05-03] MEDS ORDERED: Pantoprazole DR 40 MG TAB ONE ×2 (14:14→14:40)
[2024-05-03] MEDS ORDERED: Lidocaine Viscous Sol 2% 15 ml UD Cup ONE ×2 (14:14→14:40)
[2024-05-03] MEDS ORDERED: Famotidine 20 MG TAB ONE ×2 (14:14→14:40)
[2024-05-03 14:16] LABS: ALT (SGPT) 8 U/L (8-55); AST (SGOT) 9 U/L (5-34); Albumin 3.7 g/dL (3.5-5.0); Alkaline Phosphatase 76 U/L (40-110); Anion Gap 12 mmol/L (10-20); BUN (Urea Nitrogen) 7 mg/dL (7.0-18.7); Bilirubin, Total 0.2 mg/dL (0.2-1.2); Calc. Creatinine Clearance 0 mL/min (70-130); Calcium 8.8 mg/dL (7.8-10.44); Carbon Dioxide 25 mmol/L (22-29); Chloride 104 mmol/L (98-107); Estimated GFR 102; Glucose 79 mg/dL (70-105); Lipase 23 U/L (8-78); Magnesium 2.1 mg/dL (1.6-2.6); Potassium 4.1 mmol/L (3.5-5.1); Protein, Total 6.7 g/dL (6.0-8.3); Sodium 137 mmol/L (136-145)
[2024-05-03] MEDS ORDERED: Mag-Al 1200 mg/1200 mg/30 ML UDCUP ONE (14:40)
== END 2024-05-03 15:54 | disposition home or self-care (01) ==
LOC: ERS 12:46
DX: K92.2 Gastrointestinal hemorrhage, unspecified (principal); Z86.718 Personal history of other venous thrombosis and embolism
CPT/HCPCS: 36415; 80053; 83690; 83735; 84703; 85025; 99284; Q0162